=== PATIENT | male | born 1975 | race Caucasian/White ===

== ENCOUNTER 2018-03-15 19:49 | Emergency (ER) | payer OTHER ==
[~2018-03-15] VITALS: Ht 177.8 cm; Wt 86.2 kg
[2018-03-15] MEDS ORDERED: HYDROcodone/APAP 10/325 1 TAB TABLET PO ONE (20:45)
[2018-03-15] MEDS ORDERED: IBUPROFEN 800 MG TABLET. PO ONE ×2 (20:45→20:54)
[2018-03-15] MEDS ORDERED: IBUPROFEN 600 MG TABLET. PO ONE (20:45)
[2018-03-15 21:46] VITALS: BP 133/85
[2018-03-15] MEDS ORDERED: HYDR-971 PO (21:54)
--- NOTE | 2018-03-15 21:54 | PHYS DOC ---
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 Patient was jumping back on the fire truck when he caught and twisted his fifth digit. He had a deformity which he pulled on it and straighten somewhat but he is unable to range of motion the finger secondary to pain and swelling. Review of Systems Review of Systems Constitutional: Denies fever or chills [] Eyes: Denies change in visual acuity, redness, or eye pain [] HENT: Denies nasal congestion or sore throat [] Respiratory: Denies cough or shortness of breath [] Cardiovascular: No additional information not addressed in HPI [] GI: Denies abdominal pain, nausea, vomiting, bloody stools or diarrhea [] : Denies dysuria or hematuria [] Musculoskeletal: Denies back pain or joint pain [] Integument: Denies rash or skin lesions [] Neurologic: Denies headache, focal weakness or sensory changes [] Endocrine: Denies polyuria or polydipsia [] All other systems were reviewed and found to be within normal limits, except as documented in this note. Current Medications Current Medications Current Medications Medications (Trade) Dose Ordered Sig/Graciela Start Time Stop Time Status Last Admin Dose Admin Acetaminophen/ Hydrocodone Bitart (Lortab 10/325) 1 tab 1X ONCE 03/15/18 20:45 03/15/18 21:02 DC 03/15/18 20:59 1 TAB Ibuprofen (Motrin) 800 mg 1X ONCE 03/15/18 20:45 03/15/18 21:02 DC Allergies Allergies Allergies Coded Allergies Type Severity Reaction Last Updated Verified No Known Drug Allergies 03/15/18 No Physical Exam Physical Exam Right fifth digit with deformity of the proximal phalanx with ulnar deviation of the distal finger. Bony tenderness at that distribution. Neurovascularly intact distally. Range of motion limited by pain. Remainder of hand and wrist benign Constitutional: Well developed, well nourished, no acute distress, non-toxic appearance. [] HENT: Normocephalic, atraumatic, bilateral external ears normal, oropharynx moist, no oral exudates, nose normal. [] Eyes: EOMI, conjunctiva normal, no discharge. [] Neck: Normal range of motion, no tenderness, supple, no stridor. [] Cardiovascular: No tachycardia Lungs & Thorax: Normal respiratory rate with no asymmetry of the chest wall excursion and no increased work of breathing Abdomen: Nondistended abdomen Skin: Warm, dry, no erythema, no rash. [] Back: Normal supple appearing neck Extremities: no cyanosis, no clubbing, ROM intact, no edema. [] Neurologic: Alert and oriented X 3, normal motor function, normal sensory function, no focal deficits noted. [] Psychologic: Affect normal, judgement normal, mood normal. [] Current Patient Data Vital Signs Vital Signs Date Time Temp Pulse Resp B/P (MAP) Pulse Ox O2 Delivery O2 Flow Rate FiO2 03/15/18 20:59 16 EKG EKG [] Radiology/Procedures Radiology/Procedures X-ray hand shows comminuted fracture of the proximal aspect of the right fifth digit proximal phalange with intra-articular involvement and angulation. Interpreted by me[] Procedure: Reduction of angulated comminuted fracture right fifth digit proximal phalange by FRANSISCA Joya Patient is sitting comfortably. Analgesia administered with [place] and ibuprofen. Patient with pain well-controlled prior to procedure. He consents verbally. Axial traction applied with correction of angulation of the fracture site. Finger lisa taped to the fourth digit as well as taped to an aluminum foam splint in comfortable position of function. Patient tolerated well without complication Course & Med Decision Making Course & Med Decision Making Pertinent Labs and Imaging studies reviewed. (See chart for details) Patient with angulated fracture clinically confirmed by x-ray and reduction performed by me see procedure note. Pain well controlled. Neurovascularly intact distally. NSAIDs and narcotics recommended and prescribed respectively. Patient were to follow up with his workman's comp for reevaluation referral to orthopedics/hand surgery for review of findings and surgical treatment as needed. Patient is aware that without definitive management by hand surgery to optimize his outcome, he could suffer a permanent disability regarding the finger in his hand. No further workup or treatment indicated patient agrees with outpatient follow-up and strict return precautions given [] Dragon Disclaimer Dragon Disclaimer This electronic medical record was generated, in whole or in part, using a voice recognition dictation system. Departure Departure: Impression: Primary Impression: Fracture of proximal phalanx of finger of right hand Disposition: 01 HOME, SELF-CARE Condition: IMPROVED Patient Instructions: Finger Fracture (Phalangeal)-[employer] Additional Instructions: You have a fracture of your right pinky. Fracture is of the proximal phalanx and the fracture is comminuted which means there are multiple pieces. It also extends into your metacarpophalangeal joint. The physician has been improved and a splint has been applied. Rest apply ice and elevate above your heart whenever possible for the first 1-2 days. Take ibuprofen 800 mg every 6 hours and [place] one pill every 6 hours as needed for pain unrelieved by ibuprofen. Follow-up with your workman's comp for referral to hand surgery to evaluate and discuss the nature and extent of your injury and whether further interventions including possible surgery will be needed. Scripts Hydrocodone Bit/Acetaminophen (NORCO 5-325 TABLET) 1 Each Tablet 1 TAB PO PRN Q6HRS Y for PAIN, #16 TAB 0 Refills Prov: SEBASTIÁN RIVAS MD 03/15/18 SEBASTIÁN RIVAS MD March 15, 2018 21:54
--- NOTE | 2018-03-16 14:49 | RAD ---
Right hand, 3 views, 03/15/2018: HISTORY: Fifth digit injury There is a fracture of the proximal phalanx of the little finger. There is mild dorsal and ulnar angulation of the major distal fracture fragment without significant displacement. No other fracture or dislocation is identified. IMPRESSION: Mildly angulated fracture of the proximal aspect of the proximal phalanx of the little finger. Electronically signed by: Johny Luna MD (03/16/2018 2:45 PM) [facility]
== END 2018-03-15 21:58 | disposition home or self-care (01) ==
LOC: ER 19:49
DX: S62.616A Displaced fracture of proximal phalanx of right little finger, initial encounter for closed fracture (principal); X50.1XXA Overexertion from prolonged static or awkward postures, initial encounter; Y93.39 Activity, other involving climbing, rappelling and jumping off; Y99.8 Other external cause status; Y92.89 Other specified places as the place of occurrence of the external cause
CPT/HCPCS: 26725; 73130; 99284